=== PATIENT | male | born 1960 | race Caucasian/White ===

== ENCOUNTER 2016-08-14 06:17 | Emergency (ER) | payer SELFPAY ==
[~2016-08-14 06:17] MED LIST: AMOXICILLIN875 MG PO; BACTRIM DS TABL1 TAB PO; CYCLOBENZAPRINE5 M1 PO; FLEXERIL10 MG PO; GUIATUSS AC SY120 ML PO; HYCOTUSS EXPEC480 ML PO; IBUPROFEN600 M1 PO; LIPITOR10 M1 PO; LISINOPRIL10 M1 PO; LISINOPRIL10 MG PO; LORTAB 5-325 M1 EAC1 PO; MEDROL4 M2 PO; MOTRIN600 MG PO; NO MEDICATIONS; NORCO 10/325 TA1 TAB PO; NORCO 5-325 TA1 EACH PO; NORCO 5/325 TAB1 TAB PO; PERCOCET 5/3251 TAB PO; PRINIVIL20 M1 PO; TAMIFLU75 MG PO; TRAMADOL HCL50 MG PO; TYLENOL500 MG PO; ZITHROMAX250MG Z-PAK PO; ZITHROMAX500 M1 PO; ZOFRAN ODT4 MG/UDTAB PO
[2016-08-14] MEDS ORDERED: CEPHALEXIN500 M1 PO (06:28)
== END 2016-08-14 06:35 ==
LOC: EDMED 06:17
DX: R21 Rash and other nonspecific skin eruption (principal); I10 Essential (primary) hypertension